=== PATIENT | female | born 1975 | race Caucasian/White ===

== ENCOUNTER 2019-07-18 09:46 | Emergency (ER) | payer BC, OTHER ==
[2019-07-18 09:58] VITALS: BP 145/102
--- NOTE | 2019-07-18 10:12 | UC ---
Ear Complaint HPI - HPI Summary HPI Summary: Since Sunday her right jaw has been bothering her. It's causing pain up into her ear. It makes it difficult to open her mouth fully. 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 - History of Current Complaint Chief Complaint: UCDentalProblem Stated Complaint: JAW LOCKED Time Seen by Provider: 07/18/19 09:58 Hx Last Menstrual Period: IUD in place Pain Intensity: 4 - Allergies/Home Medications Allergies/Adverse Reactions: Allergies Allergy/AdvReac Type Severity Reaction Status Date / Time cephalexin [From Keflex] Allergy Swelling Verified 07/18/19 09:58 Of Face,Lips,& Throat Home Medications: Home Medications Levothyroxine Sodium 1 tab PO DAILY 07/18/19 [History Confirmed 07/18/19] Phenylephrine HCl/Acetaminophn [Sinus Pressure-Pain Caplet] 1 tab PO ONCE PRN [History Confirmed 07/18/19] PMH/Surg Hx/FS Hx/Imm Hx - Surgical History Surgical History: None - Social History Alcohol Use: Occasionally Substance Use Type: None Smoking Status (MU): Never Smoked Tobacco Review of Systems All Other Systems Reviewed And Are Negative: Yes Constitutional: Positive: Negative ENT: Positive: Negative Respiratory: Positive: Negative Cardiovascular: Positive: Negative Physical Exam - Summary Physical Exam Summary: She is nontoxic in appearance with stable vitals. Triage Information Reviewed: Yes Appearance: Well-Appearing Vital Signs: Initial Vital Signs Temp 97.2 F 07/18/19 09:53 Pulse 88 07/18/19 09:53 Resp 18 07/18/19 09:53 BP 145/102 07/18/19 09:53 Pulse Ox 100 07/18/19 09:53 Vital Signs Reviewed: Yes ENT: Positive: Normal ENT inspection Dental Exam: Normal Neck exam: Normal Neck: Positive: Supple, Nontender, No Lymphadenopathy Respiratory Exam: Normal Ear Complaint Course/Dx - Course Course Of Treatment: I think it's likely this is TMJ. I recommended soft diet, a few nights of rest with Ativan and follow-up with her PCP. - Differential Dx/Diagnosis Provider Diagnosis: TMJ syndrome Discharge ED - Sign-Out/Discharge Documenting (check all that apply): Patient Departure All imaging exams completed and their final reports reviewed: No Studies - Discharge Plan Condition: Stable Disposition: HOME Patient Education Materials: Temporomandibular Disorder (ED) Referrals: Houston Carl MD [Primary Care Provider] - - Billing Disposition and Condition Condition: STABLE Disposition: Home
== END 2019-07-18 10:21 | disposition home or self-care (01) ==
LOC: UCEAST 09:46
DX: M26.601 Right temporomandibular joint disorder, unspecified (principal); Z88.1 Allergy status to other antibiotic agents
CPT/HCPCS: 99212; G0463